=== PATIENT | male | born 1970 | race Caucasian/White ===

== ENCOUNTER 2018-08-25 14:21 | Emergency (ER) | payer SELFPAY ==
[~2018-08-25 14:21] MED LIST: AMOX-208 PO; AZIT250T12 PO; BENZ200C25 PO; CEFD300C3 PO; CLIN300C3 PO; CYCL10TA9 PO; FLT05NA16 NSEACH; HYDR1CAP2 PO; IBUP-2185 PO; LEVO500T2 PO; METH4TAB PO; MINO100C2 PO; MPR22T TP; NAPR-243 PO; NYST15CR3 TP; PRD20T PO; RT-ALBUINH IH; SILV20CR14 TP; [UNRECOGNIZED DRUG - CODE]; [UNRECOGNIZED DRUG - CODE] PO
== END 2018-08-25 17:50 | disposition left against medical advice (07) ==
LOC: EDUNIT# 14:21 → ER 14:22
DX: R05 Cough (principal)

== ENCOUNTER 2019-01-02 17:31 | Emergency (ER) | payer SELFPAY ==
[~2019-01-02] VITALS: Ht 188 cm; Wt 121.6 kg
--- OUTSIDE RECORDS SUMMARY | 2019-01-02 17:37 | XMS REPORT | Continuity of Care Document ---
Author Organization Unknown Address Unknown Allergies Active Description Code Type Severity Reaction Onset Reported/Identified Relationship to Patient Clinical Status Yes sulfamethoxazole [id number] Drug Allergy Moderate HIVES 02/16/2012 Yes trimethoprim [id number] Drug Allergy Moderate HIVES 02/16/2012 Medications There is no data. Problems Date Dx Coded Attending Type Code Diagnosis Diagnosed By 04/30/2010 Ot 959.19 04/30/2010 Ot E000.8 04/30/2010 Ot E013.9 04/30/2010 Ot E849.0 04/30/2010 Ot E927.8 12/23/2010 Ot 729.1 02/17/2012 Ot 110.2 02/17/2012 Ot 110.3 02/17/2012 Ot 110.4 02/17/2012 Ot 682.7 02/17/2012 Ot 729.5 02/17/2012 Ot V12.04 10/28/2012 Ot 729.1 10/28/2012 Ot 780.60 10/28/2012 Ot 784.0 10/28/2012 Ot 784.99 10/28/2012 Ot 786.2 10/28/2012 Ot 787.03 10/28/2012 Ot 787.91 05/22/2014 LONA BERTRAND MD Ot 723.4 BRACHIAL NEURITIS NOS 05/22/2014 LONA BERTRAND MD Ot 729.5 PAIN IN LIMB 06/25/2014 ALISON SNYDER DO Ot 465.9 ACUTE URI NOS 06/25/2014 ALISON SNYDER DO Ot 490 BRONCHITIS NOS 06/25/2014 ALISON SNYDER DO Ot 786.2 COUGH 05/27/2015 Ot 722.0 05/27/2015 BENNETT PEÑALOZA APRN Ot 305.1 TOBACCO USE DISORDER 05/27/2015 BENNETT PEÑALOZA CLINIC MANAGER Ot 490 BRONCHITIS NOS 05/27/2015 BENNETT PEÑALOZA CLINIC MANAGER Ot 786.2 COUGH 05/27/2015 Ot 722.0 12/19/2015 Ot 722.0 12/19/2015 SHAKILA CANO, ZANE Rosario Ot F17.210 NICOTINE DEPENDENCE, CIGARETTES, UNCOMPL 12/19/2015 SHAKILA CANO, ZANE Rosario Ot J40 BRONCHITIS, NOT SPECIFIED ACUTE OR CH 12/19/2015 SHAKILA CANO, ZANE Rosario Ot K42.9 UMBILICAL HERNIA WITHOUT OBSTRUCTION OR 12/19/2015 SHAKILA CANO, ZANE Rosario Ot N39.0 URINARY TRACT INFECTION, SITE NOT SPECIF 12/19/2015 SHAKILA CANO, ZANE Rosario Ot N43.3 HYDROCELE, UNSPECIFIED 12/19/2015 SHAKILA CANO, ZANE Rosario Ot N45.1 EPIDIDYMITIS 12/25/2015 SHAKILA CANO, ZANE Rosario Ot F17.210 12/25/2015 SHAKILA CANO, ZANE Rosario Ot J40 12/25/2015 SHAKILA CANO, ZANE Rosario Ot K42.9 12/25/2015 SHAKILA CANO, ZANE Rosario Ot N39.0 12/25/2015 SHAKILA CANO, AZNE Rosario Ot N43.3 12/25/2015 ZANE JHAVERI MD Ot N45.1 12/26/2015 Ot 722.0 04/11/2016 Ot F17.210 NICOTINE DEPENDENCE, CIGARETTES, UNCOMPL 04/11/2016 Ot 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 Results Test Result Range Gram stain microscopy - 04/11/16 15:55 GRAM STAIN RESULT FEW GRAM POSITIVE COCCI RESEMBLING STAPH NRG Bacteria identification in wound by culture - 04/11/16 15:55 Bacteria identification in wound by culture [id number] NRG FREE TEXT EXTERNAL SENSITIVITY REPORTED AT 1600, 04-12-16 NRG QUANTITY OF GROWTH Moderate Growth NRG CALL POSITIVES (F1 HELP) CT/FRANKIE AT 0928, TO NS/KD NRG PBP2 MRSA isolated (Screening test for MRSA is positive) NRG Bacterial susceptibility panel - 04/11/16 15:55 Oxacillin susceptibility test by minimum inhibitory concentration > = NRG Gentamicin susceptibility test by minimum inhibitory concentration < = NRG Clindamycin susceptibility test by minimum inhibitory concentration R NRG Erythromycin susceptibility test by minimum inhibitory concentration >= NRG Trimethoprim/sulfamethoxazole susceptibility test by minimum inhibitoryconcentration <= NRG Vancomycin susceptibility test by minimum inhibitory concentration < = NRG Levofloxacin susceptibility test by minimum inhibitory concentration <= NRG Rifampin susceptibility test by minimum inhibitory concentration <= NRG Tetracycline susceptibility test by minimum inhibitory concentration <= NRG Encounters ACCT No. Visit Date/Time Discharge Status Pt. Type Provider Facility Loc./Unit Complaint [id number] 08/25/2018 14:22:00 08/25/2018 17:50:00 DIS Emergency MOI KOTHARI MD [facility] ER COUGH [id number] 12/19/2015 15:14:00 12/19/2015 23:59:59 CLS Emergency ZANE JHAVERI MD [facility] ER LEFT TESTICLE SWOLLEN [id number] 05/27/2015 20:27:00 05/27/2015 21:03:00 DIS Emergency BENNETT PEÑALOZA APRN [facility] ER COUGH, CONGESTION [id number] 06/25/2014 18:43:00 06/25/2014 21:07:00 DIS Emergency ALISON SNYDER DO [facility] ER FLU SYMPTOMS [id number] 05/22/2014 13:23:00 05/22/2014 14:30:00 DIS Emergency LONA BERTRAND MD [facility] ER LEFT ARM PAIN/SPASMS [id number] 01/02/2019 17:33:00 ACT Emergency LONA BERTRAND MD [facility] ER SORE ON RIGHT FOOT [id number] 04/11/2016 15:25:00 Document Registration [id number] 05/27/2015 20:28:00 Document Registration [id number] 05/27/2015 20:28:00 Document Registration [id number] 10/28/2012 00:54:00 Document Registration [id number] 01/25/2011 12:34:00 Document Registration [id number] 04/30/2010 04:49:00 Document Registration
--- NOTE | 2019-01-02 17:45 | NUR ---
SEE KATHY CHILD CHARTING FOR WOUND DESCRIPTION.
[2019-01-02] MEDS ORDERED: CLIN300C11 PO (17:50)
--- NOTE | 2019-01-02 17:50 | ED Lower Extremity ---
General Chief Complaint: Lower Extremity Stated Complaint: SORE ON RIGHT FOOT Nursing Triage Note: ARRIVED VIA AMB TO TRIAGE WITH COMPLAINTS OF A MRSA OUTBREAK ON HIS RIGHT FOOT. STATES HE IS OUT OF HIS ABX AND SILVADENE THAT HE USUALLY USES. Nursing Sepsis Screen: No Definite Risk Source: patient Exam Limitations: no limitations History of Present Illness Date Seen by Provider: Jan 02, 2019 Time Seen by Provider: 17:45 Allergies and Home Medications Allergies Coded Allergies: sulfamethoxazole (Verified Allergy, Intermediate, HIVES, 02/16/12) trimethoprim (Verified Allergy, Intermediate, HIVES, 02/16/12) Home Medications Albuterol Sulfate 8.5 Gm Hfa.aer.ad, 2-4 PUFF IH Q4H PRN for SHORTNESS OF BREATH 2-4 puffs every 4 hours as needed for wheezing, shortness of air, or persistent cough Prescribed by: ZANE XIAO on 12/19/15 1742 Clindamycin HCl 300 Mg Capsule, 300 MG PO TID Prescribed by: KATHY BRAND on 01/02/19 1750 Past Ayijfts-Okifuc-Uikyjc Hx Patient Social History Alcohol Use: Occasionally Uses Alcohol Beverage of Choice: Beer Recreational Drug Use: No Smoking Status: Current Everyday Smoker Type Used: Cigarettes Recent Foreign Travel: No Contact w/Someone Who Travel: No Recent Infectious Disease Expo: No Recent Hopitalizations: No Immunizations Up To Date Tetanus Booster (TDap): Unknown Past Medical History Surgeries: Yes (DENTAL EXTRACTIONS) Gallbladder Respiratory: No Cardiac: No Neurological: No Reproductive Disorders: No Sexually Transmitted Disease: No HIV/AIDS: No Gastrointestinal: Yes Abdominal Hernia, Gastroesophageal Reflux Musculoskeletal: No Endocrine: No Cancer: No Psychosocial: No Integumentary: Yes (MRSA HX INVOLING FEET) Blood Disorders: No Family Medical History No Pertinent Family Hx Physical Exam Vital Signs Vital Signs - First Documented 01/02/19 17:35 Temp 98.4 Pulse 79 Resp 16 B/P (MAP) 164/94 (117) Pulse Ox 96 O2 Delivery Room Air Capillary Refill : Less Than 3 Seconds Height, Weight, BMI Height: 6'2.00" Weight: 268lbs. 4.0oz. 121.359052at; 31.66 BMI Method:Stated Progress/Results/Core Measures Results/Orders Micro Results Microbiology 01/02/19 Gram Stain - Final, Resulted 01/02/19 Wound Culture - Preliminary, Resulted Arcanobacterium armidaardiae My Orders Orders - KATHY BRAND Silver Sulfadiazine 400 Gm (Ssd 1% 400 G (01/03/19 09:00) Wound Culture (01/02/19 17:51) Silver Sulfadiazine 50 Gm (Ssd 1% 50 Gm) (01/02/19 17:59) Vital Signs/I&O 01/02/19 01/02/19 17:35 18:09 Temp 98.4 98.4 Pulse 79 79 Resp 16 16 B/P (MAP) 164/94 (117) 164/94 (117) Pulse Ox 96 96 O2 Delivery Room Air Blood Pressure Mean: 117 Departure Impression Primary Impression: 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 Decision time for Depature: 17:46 Referrals: [facility] (PCP/Family) Primary Care Physician Patient Instructions: Wound Care (DC) Add. Discharge Instructions: Take medications as directed. Call tomorrow morning to schedule an appointment with [facility] to have a follow-up appointment within 1 week. If you're unable to get an appointment return back to the emergency room for wound check. Return back to the emergency room for worsening symptoms, worsening infection, or concerns as needed. Change the dressing twice a day. You may use ibuprofen and Tylenol as needed for pain. All discharge instructions reviewed with patient and/or family. Voiced understanding. Scripts Clindamycin HCl (Clindamycin HCl) 300 Mg Capsule 300 MG PO TID for 7 Days, #21 CAP Prov: KATHY BRAND 01/02/19 KATHY BRAND Jan 02, 2019 17:50
[2019-01-02] MEDS ORDERED: SILVER SULFADIAZINE 50 GM CREAM ONE (17:59)
[2019-01-02 18:09] VITALS: BP 164/94
[2019-01-03] MEDS ORDERED: SILVER SULFADIAZINE 400 GM CREAM TOP SCH (09:00)
== END 2019-01-02 18:09 | disposition home or self-care (01) ==
LOC: EDUNIT# 17:31 → ER 17:33
DX: L97.518 Non-pressure chronic ulcer of other part of right foot with other specified severity (principal); K21.9 Gastro-esophageal reflux disease without esophagitis; F17.210 Nicotine dependence, cigarettes, uncomplicated; Z88.2 Allergy status to sulfonamides; Z87.19 Personal history of other diseases of the digestive system; Z86.14 Personal history of Methicillin resistant Staphylococcus aureus infection; Z88.8 Allergy status to other drugs, medicaments and biological substances; Z98.890 Other specified postprocedural states
CPT/HCPCS: 87070; 87077; 87205

== ENCOUNTER 2019-01-20 15:49 | Emergency (ER) | payer SELFPAY ==
[~2019-01-20] VITALS: Ht 188 cm; Wt 119.3 kg
[~2019-01-20 15:49] MED LIST changes: +CLIN300C11 PO
--- NOTE | 2019-01-20 16:18 | ED Integumentary General ---
General Chief Complaint: Skin/Wound Problems Stated Complaint: MRSA ON RIGHT FOOT Nursing Triage Note: Ambulatory to rm 5. Pt reports being diagnosed with MRSA on R foot. Pt reports taking clindamycin and using silvadene cream with no relief. Pt c/o pain and itching. Source: patient Exam Limitations: no limitations History of Present Illness Date Seen by Provider: January 20, 2019 Time Seen by Provider: 16:16 Initial Comments ER with a pruritic and somewhat painful lesion to the plantar surface of the right foot. He was seen here about 3 weeks ago for the same, given a prescription for clindamycin, had a wound culture done, states that he has a history of MRSA. He denies any improvement with the use of clindamycin. He states this is been a problem for about 10 years. He denies fevers chills or swelling of the foot or ankle. Timing/Duration: other (10 years ago) Severity: moderate Associated Symptoms: denies symptoms Allergies and Home Medications Allergies Coded Allergies: sulfamethoxazole (Verified Allergy, Intermediate, HIVES, 02/16/12) trimethoprim (Verified Allergy, Intermediate, HIVES, 02/16/12) Home Medications Albuterol Sulfate 8.5 Gm Hfa.aer.ad, 2-4 PUFF IH Q4H PRN for SHORTNESS OF BREATH 2-4 puffs every 4 hours as needed for wheezing, shortness of air, or persistent cough Prescribed by: ZANE XIAO on 12/19/15 1742 Clindamycin HCl 300 Mg Capsule, 300 MG PO TID Prescribed by: KATHY BRAND on 01/02/19 1750 Patient Home Medication List Home Medication List Reviewed: Yes Review of Systems Review of Systems Constitutional: see HPI EENTM: see HPI Respiratory: no symptoms reported Cardiovascular: no symptoms reported Genitourinary: no symptoms reported Musculoskeletal: no symptoms reported Skin: see HPI Psychiatric/Neurological: No Symptoms Reported Endocrine: No Symptoms Reported Past Dptnonm-Emyffx-Odsiti Hx Patient Social History Alcohol Use: Occasionally Uses Alcohol Beverage of Choice: Beer Recreational Drug Use: No Smoking Status: Current Everyday Smoker Type Used: Cigarettes 2nd Hand Smoke Exposure: Yes Recent Foreign Travel: No Contact w/Someone Who Travel: No Recent Infectious Disease Expo: No Recent Hopitalizations: No Physical Abuse: No Sexual Abuse: No Immunizations Up To Date Tetanus Booster (TDap): Unknown Past Medical History Surgeries: Yes (DENTAL EXTRACTIONS) Gallbladder Respiratory: No Cardiac: No Neurological: No Reproductive Disorders: No Sexually Transmitted Disease: No HIV/AIDS: No Gastrointestinal: Yes Abdominal Hernia, Gastroesophageal Reflux Musculoskeletal: No Endocrine: No Cancer: No Psychosocial: No Integumentary: Yes (MRSA HX INVOLING FEET) Blood Disorders: No Family Medical History No Pertinent Family Hx Physical Exam Vital Signs Vital Signs - First Documented 01/20/19 15:54 Temp 98.3 Pulse 80 Resp 16 B/P (MAP) 164/101 (122) Pulse Ox 97 O2 Delivery Room Air Capillary Refill : Less Than 3 Seconds General Appearance: WD/WN, no apparent distress HEENT: PERRL/EOMI, normal ENT inspection Respiratory: no respiratory distress, no accessory muscle use Neurologic/Psychiatric: alert, normal mood/affect, oriented x 3 Skin: normal color, warm/dry Skin Problem Location: other (to the plantar surface of the right foot, there is a cluster of small vesicles over the heel, scaling and slight erythema of the skin to almost the entire plantar surface of the foot. There is some erythema but no overt cellulitis.) Progress/Results/Core Measures Results/Orders My Orders Orders - BENNETT PEÑALOZA APRN Maria D Prep (01/20/19 16:00) Vital Signs/I&O 01/20/19 15:54 Temp 98.3 Pulse 80 Resp 16 B/P (MAP) 164/101 (122) Pulse Ox 97 O2 Delivery Room Air Blood Pressure Mean: 122 Departure Impression Primary Impression: vesicular tinea pedis Disposition: 01 HOME, SELF-CARE Condition: Stable Departure-Patient Inst. Decision time for Depature: 16:19 Referrals: [facility] (PCP/Family) Primary Care Physician Patient Instructions: Athlete's Foot (DC) Add. Discharge Instructions: 1. Apply the antifungal cream to the bottom of your feet, both feet twice a day for 14 days. It will take 2-3 weeks to notice improvement, longer than that even to notice complete resolution. Wear sandals as much as possible to allow air to circulate around your feet. All discharge instructions reviewed with patient and/or family. Voiced understanding. Scripts Cephalexin (Cephalexin) 500 Mg Tablet 500 MG PO TID, #15 TAB 0 Refills Prov: BENNETT PEÑALOZA APRN 01/20/19 Terbinafine HCl (Terbinafine) 15 Gm Cream..g. 15 GM TP BID, #3 TUBE 1 Refill Apply to the plantar surface both feet twice a day 14 days Prov: BENNETT PEÑALOZA APRN 01/20/19 BENNETT PEÑALOZA APRN January 20, 2019 16:18
[2019-01-20] MEDS ORDERED: TERB15CR6 TP (16:23)
[2019-01-20] MEDS ORDERED: CEPH500T PO (16:24)
--- NOTE | 2019-01-20 16:24 | NUR ---
Lab called. ELENA prep was negative-no yeast or fungus noted. Ion Lyons notified.
[2019-01-20 16:38] VITALS: BP 146/93
== END 2019-01-20 16:30 | disposition home or self-care (01) ==
LOC: EDUNIT# 15:49 → ER 15:51
DX: B35.3 Tinea pedis (principal); K21.9 Gastro-esophageal reflux disease without esophagitis; F17.210 Nicotine dependence, cigarettes, uncomplicated; Z98.890 Other specified postprocedural states; Z88.2 Allergy status to sulfonamides; Z88.8 Allergy status to other drugs, medicaments and biological substances; Z86.14 Personal history of Methicillin resistant Staphylococcus aureus infection
CPT/HCPCS: 87220; 99282

== ENCOUNTER 2019-08-20 13:02 | Emergency (ER) | payer SELFPAY ==
[~2019-08-20] VITALS: Ht 187.9 cm; Wt 120.2 kg
[~2019-08-20 13:02] MED LIST changes: +CEPH500T PO; +TERB15CR6 TP
--- NOTE | 2019-08-20 13:33 | ED Cough/URI ---
General Chief Complaint: Cough/Cold/Flu Symptoms Stated Complaint: COUGH;RUNNY NOSE;CONGESTION Nursing Triage Note: COUGH CONGESTION FOR 1 WEEK OTC MEDS NOT HELPING Sepsis Screen: No Definite Risk Source: patient Exam Limitations: no limitations History of Present Illness Date Seen by Provider: Aug 20, 2019 Time Seen by Provider: 13:20 Initial Comments This is a 49-year-old male that presents to the Emergency Department with complaints of productive cough and nasal drainage 1 week. Patient states that initially the sputum was trang appearing but has progressively become more yellow tinged and clear. Patient denies fever patient reports that he has been utilizing uapq-waz-cgrpuep medications but has not improved. Does have a history of tobaccoism along with bronchitis Timing/Duration: week Severity/Quality: productive cough Prior Episodes/Possible Cause: smoke exposure Modifying Factors: Worse With Activity, Worse With Coughing; Improves With Rest Associated Symptoms: cough, nasal drainage, shortness of breath Allergies and Home Medications Allergies Coded Allergies: sulfamethoxazole (Verified Allergy, Intermediate, HIVES, 02/16/12) trimethoprim (Verified Allergy, Intermediate, HIVES, 02/16/12) Home Medications Albuterol Sulfate 1 Puff Puff, 2 PUFF IH Q4H PRN for SHORTNESS OF BREATH 1 PUFF = 90 MCG Prescribed by: SANTINO BLAIR on 08/20/19 1337 Methylprednisolone 4 Mg Tab.ds.pk, 4 MG PO UD PER DOSE PACK INSTRUCTIONS Prescribed by: SANTINO BLAIR on 08/20/19 1337 Patient Home Medication List Home Medication List Reviewed: Yes Review of Systems Review of Systems Constitutional: no symptoms reported, see HPI EENTM: see HPI, no symptoms reported Respiratory: see HPI, cough, short of breath, wheezing (inspiratory and expiratory) Cardiovascular: no symptoms reported, see HPI Gastrointestinal: no symptoms reported, see HPI Genitourinary: no symptoms reported, see HPI Musculoskeletal: no symptoms reported, see HPI Skin: no symptoms reported, see HPI Psychiatric/Neurological: No Symptoms Reported, See HPI Hematologic/Lymphatic: No Symptoms Reported, See HPI Immunological/Allergic: no symptoms reported, see HPI All Other Systems Reviewed Negative Unless Noted: Yes Past Ylotmjf-Tnkwjz-Getdbn Hx Past Med/Social Hx: Reviewed Nursing Past Med/Soc Hx Patient Social History Alcohol Use: Occasionally Uses Number of Drinks Today: AA Alcohol Beverage of Choice: Beer Recreational Drug Use: Yes (SMOKES 1 PPD) Smoking Status: Current Everyday Smoker Type Used: Cigarettes 2nd Hand Smoke Exposure: Yes Recent Foreign Travel: No Contact w/Someone Who Travel: No Recent Infectious Disease Expo: No Recent Hopitalizations: No Immunizations Up To Date Tetanus Booster (TDap): Unknown Past Medical History Surgeries: Yes (DENTAL EXTRACTIONS) Gallbladder Respiratory: No Cardiac: No Neurological: No Reproductive Disorders: No Sexually Transmitted Disease: No HIV/AIDS: No Gastrointestinal: Yes Abdominal Hernia, Gastroesophageal Reflux Musculoskeletal: No Endocrine: No Cancer: No Psychosocial: No Integumentary: Yes (MRSA HX INVOLING FEET) Blood Disorders: No Family Medical History No Pertinent Family Hx Physical Exam Vital Signs - First Documented 08/20/19 08/20/19 13:15 13:45 Temp 36.6 Pulse 76 Resp 18 B/P (MAP) 152/87 (108) Pulse Ox 98 Capillary Refill : Less Than 3 Seconds Height: 6'2.00" Weight: 263lbs. 4.0oz. 119.984408nb; 34.00 BMI Method:Stated General Appearance: WD/WN, no apparent distress HEENT: PERRL/EOMI, normal ENT inspection, TMs normal, pharynx normal Neck: non-tender, full range of motion, supple, normal inspection Respiratory: chest non-tender, normal breath sounds, no respiratory distress, no accessory muscle use, wheezing, expiration, inspiration Cardiovascular: normal peripheral pulses, regular rate, rhythm, no edema, no gallop, no JVD, no murmur Gastrointestinal: normal bowel sounds, non tender, soft, no organomegaly Extremities: normal range of motion, non-tender, normal inspection, no pedal edema, no calf tenderness Neurologic/Psychiatric: almond cutting machine tender II-XII nml as tested, no motor/sensory deficits, alert, normal mood/affect, oriented x 3 Skin: normal color, warm/dry Lymphatic: no adenopathy Progress/Results/Core Measures Suspected Sepsis Recent Fever Within 48 Hours: No Infection Criteria Present: None New/Unexplained Altered Menta: No Sepsis Screen: No Definite Risk SIRS Temperature: Pulse: 76 Respiratory Rate: 18 Blood Pressure 152 /87 Mean: 108 Results/Orders Vital Signs/I&O 08/20/19 08/20/19 13:15 13:45 Temp 36.6 36.6 Pulse 76 76 Resp 18 18 B/P (MAP) 152/87 (108) 152/87 (108) Pulse Ox 98 Capillary Refill : Less Than 3 Seconds Blood Pressure Mean: 108 POS Departure Impression Primary Impression: Bronchitis Disposition: 01 HOME, SELF-CARE Condition: Stable Departure-Patient Inst. Decision time for Depature: 13:34 Referrals: [facility] (PCP) Primary Care Physician NATALEE HATCH DO (Family) Primary Care Physician Patient Instructions: Acute Bronchitis, Adult (DC), How to Use Your Metered Dos e Inhaler (Adults) Add. Discharge Instructions: Continue to use the fxbd-qvp-gqccmii regimen that you have been using. Continue to drink adequate amounts of clear liquids You may use the inhaler 1-2 puffs every 4 hours as needed. Take the steroids as prescribed Visit with her primary care doctor about alternatives to smoking. All discharge instructions reviewed with patient and/or family. Voiced understanding. Scripts Methylprednisolone (Medrol) 4 Mg Tab.ds.pk 4 MG PO UD for 6 Days, #21 PKG 0 Refills PER DOSE PACK INSTRUCTIONS Prov: SANTINO BLAIR 08/20/19 Albuterol Sulfate (PROAIR HFA) 1 Puff Puff 2 PUFF IH Q4H PRN for SHORTNESS OF BREATH, #1 INHALER 1 PUFF = 90 MCG Prov: SANTINO BLAIR 08/20/19 SANTINO BLAIR Aug 20, 2019 13:33 POS
[2019-08-20] MEDS ORDERED: RT-ALBUINH IH (13:37)
[2019-08-20] MEDS ORDERED: METH4TAB PO (13:37)
[2019-08-20 13:45] VITALS: BP 152/87
--- OUTSIDE RECORDS SUMMARY | 2019-09-14 10:12 | XMS REPORT ---
Author Author Troy Mclaughlin Doctor Organization [facility] Address Unknown Phone Unavailable Care Team Providers Care Admission Liaison Name Role Phone Migration, Doctor Unavailable Unavailable PROBLEMS Unknown Problems ALLERGIES Substance Reaction Event Type Date Status Bactrim Unknown Drug Allergy Dec, Active ENCOUNTERS Encounter Location Date Diagnosis [facility] [address] [facility] [id number] [address] [place] [phone] Nov, Body aches R52 and Acute bro nchitis J20.9 [facility] [address] [facility] [id number] [address] [place] [phone] Dec, [facility] [address] [facility] [id number] [address] [place] [phone] Dec, [facility] [address] [facility] [id number] [address] [place] [phone] Feb, [facility] [address] [facility] [id number] [address] [place] [phone] Feb, [facility] [address] [facility] [id number] [address] [place] [phone] January, IMMUNIZATIONS No Known Immunizations SOCIAL HISTORY Never Assessed [place] [place] VITAL SIGNS MEDICATIONS Medication Instructions Dosage Frequency Start Date End Date Duration S tatus Silvadene 1 % apply 1 dose a 1/16 inch (1.5 mm) thick layer to entire burn area by Topical route 1 time per day Feb, Active Keflex 500 mg 1 Capsule 3 times per day Feb, Active Clindamycin HCl 150 mg 1 capsule by Oral route every 6 hours for 10 days Feb, Active RESULTS No Results PROCEDURES No Known procedures INSTRUCTIONS MEDICATIONS ADMINISTERED No Known Medications MEDICAL (GENERAL) HISTORY Type Description Date Surgical History cholecystectomy Hospitalization History surgery only
--- OUTSIDE RECORDS SUMMARY | 2019-09-14 10:12 | XMS REPORT | Continuity of Care Document ---
Author Organization Unknown Address Unknown Phone Unavailable Allergies Active Description Code Type Severity Reaction Onset Reported/Identified Relationship to Patient Clinical Status Yes sulfamethoxazole [id number] Drug Allergy Moderate HIVES 02/16/2012 Yes trimethoprim [id number] Drug Allergy Moderate HIVES 02/16/2012 Medications There [...] Ot 722.0 05/27/2015 BENNETT PEÑALOZA APRN Ot 305 .1 TOBACCO USE DISORDER 05/27/2015 BENNETT PEÑALOZA [employer] SALES ENGINEER Ot 490 BRONCHITIS NOS 05/27/2015 BENNETT PEÑALOZA APRN Ot 786 .2 COUGH 05/27/2015 Ot 722.0 12/19/2015 Ot 722.0 [...] ZANE Rosario Ot N39.0 12/25/2015 SHAKILA CANO, ZANE Rosario Ot N43.3 12/25/2015 SHAKILA CANO, ZANE Rosario Ot N45.1 12/26/2015 Ot 722.0 04/11/2016 Ot F17.210 NI COTINE DEPENDENCE, CIGARETTES, UNCOMPL 04/11/2016 Ot L01.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 04/11/2016 Ot R21 RASH A ND OTHER NONSPECIFIC SKIN ERUPTION 04/13/2016 Ot F17.210 NI COTINE DEPENDENCE, CIGARETTES, UNCOMPL 04/13/2016 Ot L01.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 04/13/2016 Ot R21 RASH A ND OTHER NONSPECIFIC SKIN ERUPTION 08/25/2018 TAYE CANO, MOI Whitmore Ot R05 COUGH 01/02/2019 KATHY BRAND Ot F17.210 NICOTINE DEPENDENCE, CIGARETTES, UNCOMPL 01/02/2019 KATHY BRAND Ot K21.9 GASTRO-ESOPHAGEAL REFLUX DISEASE WITHOUT 01/02/2019 KATHY BRAND Ot L97.518 NON-PRS CHRONIC ULCER OTH PRT RIGHT FOOT 01/02/2019 KATHY BRAND Ot Z86.14 PERSONAL HISTORY OF METHICILLIN RESIS ST 01/02/2019 LORNE BRANDIS Ot Z87.19 PERSONAL HISTORY OF OTHER DISEASES OF TH 01/02/2019 KATHY BRAND Ot Z88.2 ALLERGY STATUS TO SULFONAMIDES STATUS 01/02/2019 LORNE BRANDIS Ot Z88.8 ALLERGY STATUS TO OTH DRUG/MEDS/BIOL SUB 01/02/2019 LORNE BRANDIS Ot Z98.890 OTHER SPECIFIED POSTPROCEDURAL STATES 01/04/2019 KTAHY BRAND Ot F17.210 NICOTINE DEPENDENCE, CIGARETTES, UNCOMPL 01/04/2019 LORNE BRANDIS Ot K21.9 GASTRO-ESOPHAGEAL REFLUX DISEASE WITHOUT 01/04/2019 KATHY BRAND Ot L97.518 NON-PRS CHRONIC ULCER OTH PRT RIGHT FOOT 01/04/2019 KATHY BRAND Ot Z86.14 PERSONAL HISTORY OF METHICILLIN RESIS ST 01/04/2019 KATHY BRAND Ot Z87.19 PERSONAL HISTORY OF OTHER DISEASES OF TH 01/04/2019 KATHY BRAND Ot Z88.2 ALLERGY STATUS TO SULFONAMIDES STATUS 01/04/2019 KATHY BRAND Ot Z88.8 ALLERGY STATUS TO OTH DRUG/MEDS/BIOL SUB 01/04/2019 KATHY BRAND Ot Z98.890 OTHER SPECIFIED POSTPROCEDURAL STATES 01/20/2019 BENNETT PEÑALOZA APRN Ot B35 .3 TINEA PEDIS 01/20/2019 BENNETT PEÑALOZA APRN Ot F17.210 NICOTINE DEPENDENCE, CIGARETTES, UNCOMPL 01/20/2019 BENNETT PEÑALOZA [employer] SALES ENGINEER Ot K21 .9 GASTRO-ESOPHAGEAL REFLUX DISEASE WITHOUT 01/20/2019 BENNETT PEÑALOZA [employer] SALES ENGINEER Ot M79.671 PAIN IN RIGHT FOOT 01/20/2019 BENNETT PEÑALOZA [employer] SALES ENGINEER Ot Z86.14 PERSONAL HISTORY OF METHICILLIN RESIS ST 01/20/2019 BENNETT PEÑALOZA [employer] SALES ENGINEER Ot Z88 .2 ALLERGY STATUS TO SULFONAMIDES STATUS 01/20/2019 BENNETT PEÑALOZA [employer] SALES ENGINEER Ot Z88 .8 ALLERGY STATUS TO OTH DRUG/MEDS/BIOL SUB 01/20/2019 BENNETT PEÑALOZA APRN Ot Z98.890 OTHER SPECIFIED POSTPROCEDURAL STATES 08/20/2019 SANTINO BLAIR Ot F17.210 NICOTINE DEPENDENCE, CIGARETTES, UNCOMPL 08/20/2019 ROSSY, SANTINO RUBBER LINER Ot J40 BRONCHITIS, NOT SPECIFIED ACUTE OR CH 08/20/2019 ROSSY, SANTINO RUBBER LINER Ot K21.9 GASTRO-ESOPHAGEAL REFLUX DISEASE WITHOUT 08/20/2019 ROSSY, SANTINO RUBBER LINER Ot R05 COUGH 08/20/2019 ROSSY, SANTINO RUBBER LINER Ot Z88.1 ALLERGY STATUS TO OTHER ANTIBIOTIC AGENT 08/20/2019 ROSSY, SANTINO RUBBER LINER Ot Z88.2 ALLERGY STATUS TO SULFONAMIDES STATUS 08/25/2019 ROSSY, SANTINO RUBBER LINER Ot F17.210 NICOTINE DEPENDENCE, CIGARETTES, UNCOMPL 08/25/2019 ROSSY, SANTINO RUBBER LINER Ot J40 BRONCHITIS, NOT SPECIFIED ACUTE OR CH 08/25/2019 ROSSY, SANTINO RUBBER LINER Ot K21.9 GASTRO-ESOPHAGEAL REFLUX DISEASE WITHOUT 08/25/2019 ROSSY, SANTINO RUBBER LINER Ot R05 COUGH 08/25/2019 ROSSY, SANTINO RUBBER LINER Ot Z88.1 ALLERGY STATUS TO OTHER ANTIBIOTIC AGENT 08/25/2019 ROSSY, SANTINO RUBBER LINER Ot Z88.2 ALLERGY STATUS TO SULFONAMIDES STATUS 08/26/2019 ROSSY, SANTINO RUBBER LINER Ot F17.210 NICOTINE DEPENDENCE, CIGARETTES, UNCOMPL 08/26/2019 ROSSY, SANTINO RUBBER LINER Ot J40 BRONCHITIS, NOT SPECIFIED ACUTE OR CH 08/26/2019 ROSSY, SANTINO RUBBER LINER Ot K21.9 GASTRO-ESOPHAGEAL REFLUX DISEASE WITHOUT 08/26/2019 ROSSY, SANTINO RUBBER LINER Ot R05 COUGH 08/26/2019 ROSSY, SANTINO RUBBER LINER Ot Z88.1 ALLERGY STATUS TO OTHER ANTIBIOTIC AGENT 08/26/2019 ROSSY, SANTINO RUBBER LINER Ot Z88.2 ALLERGY STATUS TO SULFONAMIDES STATUS 09/06/2019 BENNETT PEÑALOZA [employer] SALES ENGINEER Ot B35 .3 TINEA PEDIS 09/06/2019 BENNETT PEÑALOZA [employer] SALES ENGINEER Ot F17.210 NICOTINE DEPENDENCE, CIGARETTES, UNCOMPL 09/06/2019 BENNETT PEÑALOZA [employer] SALES ENGINEER Ot K21 .9 GASTRO-ESOPHAGEAL REFLUX DISEASE WITHOUT 09/06/2019 BENNETT PEÑALOZA [employer] SALES ENGINEER Ot L03.116 CELLULITIS OF LEFT LOWER LIMB 09/06/2019 BENNETT PEÑALOZA [employer] SALES ENGINEER Ot Z88 .1 ALLERGY STATUS TO OTHER ANTIBIOTIC AGENT 09/06/2019 BENNETT PEÑALOZA [employer] SALES ENGINEER Ot Z88 .2 ALLERGY STATUS TO SULFONAMIDES STATUS 09/09/2019 BENNETT PEÑALOZA [employer] SALES ENGINEER Ot B35 .3 TINEA PEDIS 09/09/2019 BENNETT PEÑALOZA [employer] SALES ENGINEER Ot F17.210 NICOTINE DEPENDENCE, CIGARETTES, UNCOMPL 09/09/2019 BENNETT PEÑALOZA [employer] SALES ENGINEER Ot K21 .9 GASTRO-ESOPHAGEAL REFLUX DISEASE WITHOUT 09/09/2019 BENNETT PEÑALOZA [employer] SALES ENGINEER Ot L03.116 CELLULITIS OF LEFT LOWER LIMB 09/09/2019 BENNETT PEÑALOZA [employer] SALES ENGINEER Ot Z88 .1 ALLERGY STATUS TO OTHER ANTIBIOTIC AGENT 09/09/2019 BENNETT PEÑALOZA [employer] SALES ENGINEER Ot Z88 .2 ALLERGY STATUS TO SULFONAMIDES STATUS Procedures There is no data. Results Test Result Range Gram stain microscopy - 04/11/16 15:55 GRAM STAIN RESULT FEW GRAM POSITIVE COCCI RESEMBLI NG STAPH NRG Bacteria identification in wound by cult ure - 04/11/16 15:55 Bacteria identification in wound by culture [id number] NRG FREE TEXT EXTERNAL SENSITIVITY REPORTED AT 1600, NRG QUANTITY OF GROWTH Moderate Growth NRG CALL POSITIVES (F1 HELP) CT/FRANKIE AT 0928, TO NS/KD NRG PBP2 MRSA isolated (Screening test for MRSA is positive) NR Bacterial susceptibility panel - 6 15:55 Oxacillin susceptibility test by minimum inhibitory co ncentration >= NRG Gentamicin susceptibility test by minimum inhibitory c oncentration <= NRG Clindamycin susceptibility test by minimum inhibitory concentration R NRG Erythromycin susceptibility test by minimum inhibitory concentration >= NRG Trimethoprim/sulfamethoxazole susceptibi lity test by minimum inhibitoryconcentration <= NRG Vancomycin susceptibility test by minimum inhibitory c oncentration <= NRG Levofloxacin susceptibility test by minimum inhibitory concentration <= NRG Rifampin susceptibility test by minimum inhibitory con centration <= NRG Tetracycline susceptibility test by minimum inhibitory concentration <= NRG Gram stain microscopy - 01/02/19 17:35 Gram stain microscopy Mixed bacterial jenna NRG Bacteria identification in wound by cult ure - 01/02/19 17:35 Bacteria identification in wound by culture [id number] NRG FREE TEXT EXTERNAL WITH NRG QUANTITY OF GROWTH Many NRG Microscopic examination by ELENA preparati on - 01/20/19 16:07 ELENA RESULT NEGATIVE; NO FUNGAL ELEMENTS OBSERVED NRG Gram stain microscopy - 09/03/19 16:54 Gram stain microscopy Many Gram Negative Bacilli NRG Bacteria identification in wound by cult ure - 09/03/19 16:54 Bacteria identification in wound by culture [id number] NRG FREE TEXT EXTERNAL ID REPORTED 09/06/19 15:05 NRG QUANTITY OF GROWTH Many NRG FREE TEXT ENTRY 2 SUSCEPTIBILITY REPORTED 09/07/19 09:05 NRG Dirithromycin susceptibility test by dis k diffusion - 09/03/19 16:54 Gentamicin susceptibility test by minimum inhibitory c oncentration <= NRG Trimethoprim/sulfamethoxazole susceptibi lity test by minimum inhibitoryconcentration > NRG Levofloxacin susceptibility test by minimum inhibitory concentration <= NRG Ampicillin susceptibility test by minimum inhibitory c oncentration <= NRG Cefazolin susceptibility test by minimum inhibitory co ncentration 4 NRG Ceftriaxone susceptibility test by minimum inhibitory concentration <= NRG Piperacillin/tazobactam susceptibility t est by minimum inhibitory concentration <= NRG Ciprofloxacin susceptibility test by minimum inhibitor y concentration <= NRG Amoxicillin and clavulanate potassium susc LASHONDA <= NRG Dirithromycin susceptibility test by dis k diffusion - 09/03/19 16:54 Oxacillin susceptibility test by minimum inhibitory co ncentration <= NRG Clindamycin susceptibility test by minimum inhibitory concentration <= NRG Erythromycin susceptibility test by minimum inhibitory concentration <= NRG Vancomycin susceptibility test by minimum inhibitory c oncentration <= NRG Levofloxacin susceptibility test by minimum inhibitory concentration <= NRG Rifampin susceptibility test by minimum inhibitory con centration <= NRG Cefazolin susceptibility test by minimum inhibitory co ncentration <= NRG Linezolid susceptibility test by minimum inhibitory co ncentration 2 NRG Moxifloxacin susceptibility test by minimum inhibitory concentration S NRG Minocycline susc LASHONDA <= NRG Encounters ACCT No. Visit Date/Time Discharge Status Pt. Type Provider Facility Loc./Unit Complaint [id number] 09/03/2019 15:32:00 17:55:00 DIS Outpatient BENNETT PEÑALOZA APRN [facility] ER ABSCESS L FOOT [id number] 08/20/2019 13:03:00 13:52:00 DIS Emergency SANTINO BLAIR [facility] ER COUGH;RUNNY NOSE;CONGES TION [id number] 01/20/2019 15:51:00 05/04/2 019 16:30:00 DIS Emergency BENNETT PEÑALOZA APRN [facility] ER MRSA ON RIGHT FOOT [id number] 01/02/2019 17:33:00 019 18:09:00 DIS Emergency KATHY BRAND [facility] ER SORE ON RIGHT FOOT [id number] 08/25/2018 14:22:00 018 17:50:00 DIS Emergency TAYE CANO, MOI Whitmore [facility] ER COUGH [id number] 12/19/2015 15:14:00 016 23:59:59 CLS Emergency SHAKILA CANO, ZANE Rosario [facility] ER LEFT TESTICLE S WOLLEN [id number] 05/27/2015 20:27:00 015 21:03:00 DIS Emergency BENNETT PEÑALOZA APRN [facility] ER COUGH, CONGESTION [id number] 06/25/2014 18:43:00 014 21:07:00 DIS Emergency ALISON SNYDER DO [facility] ER FLU SYMPTOMS [id number] 05/22/2014 13:23:00 014 14:30:00 DIS Emergency ELZA CANO, LONA Aldana [facility] ER LEFT ARM PAIN/SPASMS [id number] 04/11/2016 15:25:00 Document Registration [id number] 05/27/2015 20:28:00 Document Registration [id number] 05/27/2015 20:28:00 Document Registration [id number] 10/28/2012 00:54:00 Document Registration [id number] 01/25/2011 12:34:00 Document Registration [id number] 04/30/2010 04:49:00 Document Registration
== END 2019-08-20 13:52 | disposition home or self-care (01) ==
LOC: EDUNIT# 13:02 → ER 13:03
DX: J40 Bronchitis, not specified as acute or chronic (principal); K21.9 Gastro-esophageal reflux disease without esophagitis; F17.210 Nicotine dependence, cigarettes, uncomplicated; Z88.1 Allergy status to other antibiotic agents; Z88.2 Allergy status to sulfonamides
CPT/HCPCS: 99282

== ENCOUNTER 2019-09-03 15:31 | Emergency (ER) | payer SELFPAY ==
[~2019-09-03] VITALS: Ht 187 cm; Wt 119.0 kg
[2019-09-03] MEDS ORDERED: SILV25CR21 (15:43)
--- NOTE | 2019-09-03 16:54 | ED Integumentary General ---
General Chief Complaint: Skin/Wound Problems Stated Complaint: ABSCESS L FOOT Nursing Triage Note: ABSCESS LEFT FOOT X3-5 DAYS. STATES HE HAS A HX OF MRSA. Source: patient Exam Limitations: no limitations History of Present Illness Date Seen by Provider: Sep 03, 2019 Time Seen by Provider: 16:52 Initial Comments To ER with abscess left foot for 3-5 days plantar surface. Timing/Duration: constant, getting worse Severity: moderate Associated Symptoms: denies symptoms Allergies and Home Medications Allergies Coded Allergies: sulfamethoxazole (Verified Allergy, Intermediate, HIVES, 02/16/12) trimethoprim (Verified Allergy, Intermediate, HIVES, 02/16/12) Home Medications Sodium Hypochlorite 1,000 Ml Liquid, 1,000 ML TOP DAILY Prescribed by: BENNETT PEÑALOZA on 09/03/19 1716 Patient Home Medication List Home Medication List Reviewed: Yes Review of Systems Review of Systems Constitutional: see HPI EENTM: see HPI Respiratory: no symptoms reported Cardiovascular: no symptoms reported Genitourinary: no symptoms reported Musculoskeletal: no symptoms reported Skin: see HPI Psychiatric/Neurological: No Symptoms Reported Endocrine: No Symptoms Reported Past Keyxgnp-Cujqra-Tqzdrt Hx Patient Social History Alcohol Use: Rarely Uses Alcohol Beverage of Choice: Beer Recreational Drug Use: No Smoking Status: Current Everyday Smoker Type Used: Cigarettes 2nd Hand Smoke Exposure: Yes Recent Foreign Travel: No Contact w/Someone Who Travel: No Recent Infectious Disease Expo: No Recent Hopitalizations: No Immunizations Up To Date Tetanus Booster (TDap): Unknown Past Medical History Surgeries: Yes (DENTAL EXTRACTIONS) Gallbladder Respiratory: No Cardiac: No Neurological: No Reproductive Disorders: No Sexually Transmitted Disease: No HIV/AIDS: No Genitourinary: No Gastrointestinal: Yes Abdominal Hernia, Gastroesophageal Reflux Musculoskeletal: No Endocrine: No HEENT: No Cancer: No Psychosocial: No Integumentary: Yes (MRSA HX INVOLING FEET) Blood Disorders: No Family Medical History No Pertinent Family Hx Physical Exam Vital Signs Vital Signs - First Documented 09/03/19 15:39 Temp 36.8 Pulse 83 Resp 16 B/P (MAP) 159/98 (118) Pulse Ox 97 O2 Delivery Room Air Capillary Refill : Less Than 3 Seconds General Appearance: WD/WN, no apparent distress HEENT: PERRL/EOMI, normal ENT inspection Cardiovascular: regular rate, rhythm Respiratory: no respiratory distress, no accessory muscle use Extremities: normal range of motion, non-tender Neurologic/Psychiatric: alert, normal mood/affect, oriented x 3 Skin: normal color, warm/dry Skin Problem Character: other (V did tissue/roof of the blister/bulla was debrided, this was smeared with Lotrisone cream and mupirocin ointment, given injection of Rocephin. I'll send him home on topical antifungal, doxycycline, Dakin solution ) Progress/Results/Core Measures Results/Orders My Orders Orders - BENNETT PEÑALOZA APRN Wound Culture (09/03/19 16:50) Doxycycline Hyclate Tablet (Vibramycin T (09/03/19 17:00) Ceftriaxone For Im Use (Rocephin For Im (09/03/19 17:00) Mupirocin Ointment (Bactroban Ointment (09/03/19 21:00) Clotrimazole 1% Cream (Lotrimin 1% Cream (09/03/19 21:00) Lidocaine 1% Inj 20 Ml (Xylocaine 1% Inj (09/03/19 17:00) Vital Signs/I&O 09/03/19 15:39 Temp 36.8 Pulse 83 Resp 16 B/P (MAP) 159/98 (118) Pulse Ox 97 O2 Delivery Room Air Blood Pressure Mean: 118 POS Departure Impression Primary Impression: Tinea pedis Qualified Codes: B35.3 - Tinea pedis Additional Impression: Cellulitis Qualified Codes: L03.90 - Cellulitis, unspecified Disposition: 01 HOME, SELF-CARE Condition: Stable Departure-Patient Inst. Decision time for Depature: 17:13 Referrals: NATALEE HATCH DO (PCP/Family) Primary Care Physician Patient Instructions: Skin Abscess Add. Discharge Instructions: 1. Soak some gauze in the Dakin's solution, applied directly against the wound on your foot then wrap it daily and remove it in the evening time. Once you remove this then apply the antifungal ointment. Take the oral antibiotics as directed. Scripts Clotrimazole (Clotrimazole) 15 Gm Cream..g. 1 GM TP BID, #1 TUBE Prov: BENNETT PEÑALOZA APRN 09/03/19 Doxycycline Hyclate (Doxycycline Hyclate) 100 Mg Capsule 100 MG PO BID, #14 CAP Prov: BENNETT PEÑALOZA APRN 09/03/19 Sodium Hypochlorite (Dakin's) 1,000 Ml Liquid 1000 ML TOP DAILY, #1000 ML Prov: BENNETT PEÑALOZA APRN 09/03/19 BENNETT PEÑALOZA APRN Sep 03, 2019 16:54 POS
[2019-09-03] MEDS ORDERED: cefTRIAXone 1,000 MG/2.86 ml vial (IM ONLY) IM SCH (17:00)
[2019-09-03] MEDS ORDERED: LIDOCAINE 1% INJ 20 ML 20 ML VIAL INJ ONE (17:00)
[2019-09-03] MEDS ORDERED: DOXYCYCLINE 100 MG (VIBRAMYCIN) TABLET PO SCH (17:00)
[2019-09-03] MEDS ORDERED: [UNRECOGNIZED DRUG - CODE] TOP (17:16)
[2019-09-03] MEDS ORDERED: DOXY100C2 PO (17:25)
[2019-09-03] MEDS ORDERED: CLOT15CR5 TP (17:25)
[2019-09-03 17:55] VITALS: BP 159/98
[2019-09-03] MEDS ORDERED: MUPIROCIN 2% OINT 22 GM (BACTROBAN) TUBE TOP SCH (21:00)
[2019-09-03] MEDS ORDERED: CLOTRIMAZOLE 1% CREAM (LOTRIMIN) 30 GM TOP SCH (21:00)
== END 2019-09-03 17:55 | disposition home or self-care (01) ==
LOC: EDUNIT# 15:31 → ER 15:32
DX: B35.3 Tinea pedis (principal); L03.116 Cellulitis of left lower limb; K21.9 Gastro-esophageal reflux disease without esophagitis; F17.210 Nicotine dependence, cigarettes, uncomplicated; Z88.2 Allergy status to sulfonamides; Z88.1 Allergy status to other antibiotic agents
CPT/HCPCS: 87070; 87077; 87186; 87205

== ENCOUNTER 2020-09-01 16:15 | Emergency (ER) | payer SELFPAY ==
[~2020-09-01] VITALS: Ht 188 cm; Wt 121.6 kg
[~2020-09-01 16:15] MED LIST changes: -CLIN300C11 PO; +CLIN300C12 PO; +CLOT15CR28 TP; +DOXY100C2 PO; -MINO100C2 PO; +MINO100C5 PO; +SILV25CR21; +[UNRECOGNIZED DRUG - CODE] TOP
[2020-09-01 16:18] VITALS: BP 162/93
--- NOTE | 2020-09-01 16:38 | ED Upper Extremity ---
General Chief Complaint: Upper Extremity Stated Complaint: R ARM/SHOULDER PAIN Source: patient Exam Limitations: no limitations History of Present Illness Date Seen by Provider: Sep 01, 2020 Time Seen by Provider: 16:20 Initial Comments Patient presents ER by private conveyance with chief complaint of for the past couple weeks has had progressively worsening swelling and pain in his right hand elbow and shoulder. 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 He is right-handed. He is not having any loss of sensation. He says elevating his hand has helped. He has been using ibuprofen. No traumatic injury. Allergies and Home Medications Allergies Coded Allergies: sulfamethoxazole (Verified Allergy, Intermediate, HIVES, 02/16/12) trimethoprim (Verified Allergy, Intermediate, HIVES, 02/16/12) Home Medications Clotrimazole 15 Gm Cream..g., 1 GM TP BID Prescribed by: BENNETT PEÑALOZA on 09/03/19 1725 Doxycycline Hyclate 100 Mg Capsule, 100 MG PO BID Prescribed by: BENNETT PEÑALOZA on 09/03/19 1725 Sodium Hypochlorite 1,000 Ml Liquid, 1,000 ML TOP DAILY Prescribed by: BENNETT PEÑALOZA on 09/03/19 1716 Patient Home Medication List Home Medication List Reviewed: Yes Review of Systems Constitutional: No chills, No diaphoresis EENTM: No ear discharge, No ear pain Respiratory: No cough, No short of breath Cardiovascular: No chest pain, No palpitations Gastrointestinal: No abdominal pain, No nausea, No vomiting Genitourinary: No discharge, No dysuria Musculoskeletal: see HPI; No back pain; joint pain All Other Systems Reviewed Negative Unless Noted: Yes Past Obrrkns-Lvnbtx-Jojiiw Hx Patient Social History Alcohol Use: Occasionally Uses Alcohol Beverage of Choice: Beer Recreational Drug Use: No Smoking Status: Current Everyday Smoker Type Used: Cigarettes 2nd Hand Smoke Exposure: Yes Recent Foreign Travel: No Contact w/Someone Who Travel: No Recent Hopitalizations: No Immunizations Up To Date Tetanus Booster (TDap): Unknown Past Medical History Surgeries: Yes (DENTAL EXTRACTIONS) Gallbladder Respiratory: No Cardiac: No Neurological: No Reproductive Disorders: No Sexually Transmitted Disease: No HIV/AIDS: No Genitourinary: No Gastrointestinal: Yes Abdominal Hernia, Gastroesophageal Reflux Musculoskeletal: No Endocrine: No HEENT: No Cancer: No Psychosocial: No Integumentary: Yes (MRSA HX INVOLING FEET) Blood Disorders: No Family Medical History No Pertinent Family Hx Physical Exam Vital Signs Capillary Refill : Height, Weight, BMI Height: 6'2.00" Weight: 263lbs. 4.0oz. 119.821833no; 34.00 BMI Method:Stated General Appearance: WD/WN, no apparent distress HEENT: normal ENT inspection, pharynx normal Neck: non-tender, full range of motion, supple Cardiovascular: normal peripheral pulses, regular rate, rhythm Respiratory: no respiratory distress, no accessory muscle use Back: normal inspection, no vertebral tenderness Shoulder: normal inspection, no evidence of injury, normal ROM, soft tissue tenderness (Mild soft tissue tenderness over the trapezius that does not re create peripheral symptoms.) Elbow/Forearm: Right, soft tissue tenderness (Mild reproduction of symptoms in the wrist with Tinel's tap over ulnar groove. 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 We are going to give him a trial steroids, NSAIDs, immobilization. Work restrictions and rice therapy. We have encouraged him to follow-up in [address] HATCH if his symptoms are not improving. Departure Impression Primary Impression: Carpal tunnel syndrome Qualified Codes: G56.01 - Carpal tunnel syndrome, right upper limb Additional Impressions: Cubital tunnel syndrome on right Cervical radiculopathy Cervical radiculopathy, acute Disposition: HOME, SELF-CARE Condition: Stable Departure-Patient Inst. Decision time for Depature: 16:39 Referrals: NATALEE HATCH DO (PCP/Family) Primary Care Physician Patient Instructions: Radiculopathy, Carpal Tunnel Syndrome (DC), Cubital Tunnel Syndrome Add. Discharge Instructions: Review the handouts for more information on your syndrome. Rest your arm when not in use. Ice the areas that are swelling for 20 minutes every 2 hours for the first 2 days. You can wrap an Kai bandage around your elbow for compression and wear the cock- up splint as instructed. Elevate your arm above the level of your heart when possible to help reduce swelling and pain. Wear the cock-up splint for the next 2 weeks. For the next week you are not to lift more than 10 pounds or do any repetitive twisting of the right forearm. Plan to follow-up with Dr. Hatch in 2 weeks. 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 Take ibuprofen 4 tablets 3 times a day for the next 2 weeks. If you start to have indigestion or chest pain then stop taking the ibuprofen and see your doctor. Tylenol 1000 mg every 8 hours as necessary for breakthrough pain. All discharge instructions reviewed with patient and/or family. Voiced understanding. Scripts Methylprednisolone (Methylprednisolone Dose Pack) 4 Mg Tab.ds.pk 4 MG PO UD for 6 Days, #21 PKG 0 Refills PER DOSE PACK INSTRUCTIONS Prov: MOI KOTHARI 09/01/20 Work/School Note: Work Release Form Date Seen in the Emergency Department: Sep 01, 2020 Return to Work: Sep 02, 2020 Restrictions: Need Release from Doctor Other Restrictions Listed Below: No repetitive twisting motion of the right forearm until 09/08/2020. Restrictions: No lifting more than 10 pounds with the right forearm until 09/08/2020. Copy Copies To 1: NATALEE HATCH TITUS J Sep 01, 2020 16:38
[2020-09-01] MEDS ORDERED: METH4TAB10 PO (16:47)
== END 2020-09-01 16:50 | disposition home or self-care (01) ==
LOC: EDUNIT# 16:15 → ER 16:17
DX: G56.01 Carpal tunnel syndrome, right upper limb (principal); G56.21 Lesion of ulnar nerve, right upper limb; F17.210 Nicotine dependence, cigarettes, uncomplicated; Z88.2 Allergy status to sulfonamides; Z88.1 Allergy status to other antibiotic agents
CPT/HCPCS: 99282

== ENCOUNTER 2022-03-17 12:31 | Emergency (ER) | payer BC ==
[~2022-03-17] VITALS: Ht 187.9 cm; Wt 123.4 kg
[~2022-03-17 12:31] MED LIST changes: +CLIN-144 PO; -CLIN300C12 PO; -DOXY100C2 PO; +DOXY100C5 PO; +METH4TAB10 PO
[2022-03-17] MEDS ORDERED: DOXY100T2 PO (13:16)
[2022-03-17] MEDS ORDERED: CLIN-144 PO (13:16)
--- NOTE | 2022-03-17 13:18 | ED Integumentary General ---
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 Nursing Triage Note: PT AMB TO TRIAGE WITH COMPLAINT OF WOUND TO RIGHT PALM Source: patient Exam Limitations: no limitations Allergies and Home Medications Allergies Coded Allergies: sulfamethoxazole (Verified Allergy, Intermediate, HIVES, 02/16/12) trimethoprim (Verified Allergy, Intermediate, HIVES, 02/16/12) Patient Home Medication List Clotrimazole (Clotrimazole) 15 Gm Cream..g., 1 GM TP BID Prescribed by: BENNETT PEÑALOZA on 09/03/19 1725 Doxycycline Hyclate (Doxycycline Hyclate) 100 Mg Capsule, 100 MG PO BID Prescribed by: BENNETT PEÑALOZA on 09/03/19 1725 Methylprednisolone (Methylprednisolone Dose Pack) 4 Mg Tab.ds.pk, 4 MG PO UD Prescribed by: MOI KOTHARI on 09/01/20 1647 Silver Sulfadiazine (Ssd) 25 Gm Cream..g., (Reported) Entered as Reported by: BHARGAV BERMAN on 09/03/19 1543 Sodium Hypochlorite (Dakin's) 1,000 Ml Liquid, 1,000 ML TOP DAILY Prescribed by: BENNETT PEÑALOZA on 09/03/19 1716 Past Ypuvlal-Egcnzm-Nufsmv Hx Patient Social History Tobacco Use?: Yes Tobacco type used: Cigarettes Smoking Status: Current Everyday Smoker Use of E-Cig and/or Vaping dev: No Substance use?: No Alcohol Use?: No Pt feels they are or have been: No Immunizations Up To Date Tetanus Booster (TDap): Unknown Past Medical History Surgeries: Yes (DENTAL EXTRACTIONS) Gallbladder Respiratory: No Cardiac: No Neurological: No Reproductive Disorders: No Sexually Transmitted Disease: No HIV/AIDS: No Genitourinary: No Gastrointestinal: Yes Abdominal Hernia, Gastroesophageal Reflux Musculoskeletal: No Endocrine: No HEENT: No Cancer: No Psychosocial: No Integumentary: Yes (MRSA HX INVOLING FEET) Blood Disorders: No Family Medical History No Pertinent Family Hx Physical Exam Vital Signs Vital Signs - First Documented 03/17/22 12:43 Pulse 79 Resp 16 B/P (MAP) 173/91 (118) Pulse Ox 99 O2 Delivery Room Air Capillary Refill : Less Than 3 Seconds Progress/Results/Core Measures Results/Orders Vital Signs/I&O 03/17/22 12:43 Pulse 79 Resp 16 B/P (MAP) 173/91 (118) Pulse Ox 99 O2 Delivery Room Air Blood Pressure Mean: 118 Departure Impression Primary Impression: Abscess of right hand Disposition: 01 HOME, SELF-CARE Condition: Improved Departure-Patient Inst. Decision time for Depature: 13:14 Referrals: NATALEE HATCH DO (PCP/Family) Primary Care Physician Patient Instructions: Skin Abscess Add. Discharge Instructions: Soak your hand in warm soapy water 3 or 4 times a day over the next couple of days to encourage draining of the abscess. Use a couple squirts of the chlorhexidine soap provided. Soak for 15 to 30 minutes. You may leave wound open to air as long as it is not actively draining. When wound is draining, cover with gauze and wrap. Also cover and wrap when working in dirty environments. Complete the antibiotics as prescribed. Your wound culture should be processed by Tuesday, and you may call to follow-up on the results to ensure the antibiotics you are taking provide appropriate coverage for the type of infection you have. Return to the ER if you have worsening symptoms despite following these instructions or if you develop new symptoms such as fever or chills. All discharge instructions reviewed with patient and/or family. Voiced understanding. Scripts Clindamycin HCl (Clindamycin HCl) 300 Mg Capsule 300 MG PO QID, #28 CAP Prov: ZANE JHAVERI MD 03/17/22 Doxycycline Hyclate (Doxycycline Hyclate) 100 Mg Tablet 100 MG PO BID, #14 TAB 0 Refills Prov: ZANE JHAVERI MD 03/17/22 ZANE JHAVERI MD Mar 17, 2022 13:18
[2022-03-17] MEDS ORDERED: TETANUS,DIPTH,PERTUSS P/F (BOOSTRIX) 0.5 ML VIAL IM ONE (13:30)
[2022-03-17 13:31] VITALS: BP 129/80
== END 2022-03-17 13:31 | disposition home or self-care (01) ==
LOC: EDUNIT# 12:31 → ER 12:34
DX: L02.511 Cutaneous abscess of right hand (principal); F17.210 Nicotine dependence, cigarettes, uncomplicated
CPT/HCPCS: 87070; 87205; 90715

== ENCOUNTER 2022-08-24 13:33 | Emergency (ER) | payer BC ==
[~2022-08-24] VITALS: Ht 187.9 cm; Wt 122.0 kg
[~2022-08-24 13:33] MED LIST changes: +ALBU8.5H6 IH; +DOXY100T2 PO; -RT-ALBUINH IH
[2022-08-24] MEDS ORDERED: PRD20T PO (14:24)
[2022-08-24] MEDS ORDERED: CYCL10TA25 PO (14:24)
--- NOTE | 2022-08-24 14:24 | ED Back Pain ---
General Chief Complaint: Back Problems Stated Complaint: LOWER BACK PAIN Nursing Triage Note: PT STATES HE HAS HAD CHRONIC BACK PAIN FOR OVER 17 YRS, TAKES IBUPROFEN AT HOME, STATES HE THINKS HE PULLED SOMETHING IN HIS BACK ON TUESDAY AT WORK AND HAS HAD SEVERE LOWER BACK PAIN SINCE TUESDAY NIGHT Source of Information: Patient Exam Limitations: No Limitations History of Present Illness Date Seen by Provider: Aug 24, 2022 Time Seen by Provider: 14:21 Initial Comments This is a well-appearing 52-year-old male who presented to the ER with complaints of low back pain more so on the left side. States that he was at work at [employer] and thinks he pulled something in his back 4 days ago. Pain is worse whenever he moves his left arm or turn certain way. Has been applying topical lidocaine cream, resting and this has improved his symptoms somewhat. His pain returns whenever he is active. No numbness or tingling, pain is localized to left mid and lower back. No fever, chills, cough, shortness of breath, nausea, vomiting, abdominal pain. Allergies and Home Medications Allergies Coded Allergies: sulfamethoxazole (Verified Allergy, Intermediate, HIVES, 02/16/12) trimethoprim (Verified Allergy, Intermediate, HIVES, 02/16/12) Patient Home Medication List Home Medication List Reviewed: Yes Clindamycin HCl (Clindamycin HCl) 300 Mg Capsule, 300 MG PO QID Prescribed by: ZANE XIAO on 03/17/22 131 Clotrimazole (Clotrimazole) 15 Gm Cream..g., 1 GM TP BID Prescribed by: BENNETT PEÑALOZA on 09/03/19 1725 Cyclobenzaprine HCl (Cyclobenzaprine HCl) 10 Mg Tablet, 10 MG PO Q8H PRN for SPASMS Prescribed by: JANICE DE LA GARZA on 08/24/22 1424 Doxycycline Hyclate (Doxycycline Hyclate) 100 Mg Capsule, 100 MG PO BID Prescribed by: BENNETT PEÑALOZA on 09/03/19 1725 Doxycycline Hyclate (Doxycycline Hyclate) 100 Mg Tablet, 100 MG PO BID Prescribed by: ZANE XIAO on 03/17/22 1316 Methylprednisolone (Methylprednisolone Dose Pack) 4 Mg Tab.ds.pk, 4 MG PO UD Prescribed by: MOI KOTHARI on 09/01/20 1647 Prednisone (Prednisone) 20 Mg Tab, 40 MG PO DAILY Prescribed by: JANICE DE LA GARZA on 08/24/22 1424 Silver Sulfadiazine (Ssd) 25 Gm Cream..g., (Reported) Entered as Reported by: BHARGAV BERMAN on 09/03/19 1543 Sodium Hypochlorite (Dakin's) 1,000 Ml Liquid, 1,000 ML TOP DAILY Prescribed by: BENNETT PEÑALOZA on 09/03/19 1716 Review of Systems Constitutional: see HPI Past Ksrrlpw-Vcqpls-Hyiaan Hx Patient Social History Tobacco Use?: Yes Tobacco type used: Cigarettes Substance use?: No Alcohol Use?: Yes Alcohol Frequency: Rarely Immunizations Up To Date Tetanus Booster (TDap): Unknown Influenza Vaccine Up-to-Date: No; Not Current Past Medical History Surgeries: Yes (DENTAL EXTRACTIONS) Gallbladder Respiratory: No Cardiac: No Neurological: No Reproductive Disorders: No Sexually Transmitted Disease: No HIV/AIDS: No Genitourinary: No Gastrointestinal: Yes Abdominal Hernia, Gastroesophageal Reflux Musculoskeletal: No Endocrine: No HEENT: No Cancer: No Psychosocial: No Integumentary: Yes (MRSA HX INVOLING FEET) Blood Disorders: No Family Medical History No Pertinent Family Hx Physical Exam Vital Signs Vital Signs - First Documented 08/24/22 13:49 Temp 36.7 Pulse 87 Resp 16 B/P (MAP) 185/93 (123) Pulse Ox 98 O2 Delivery Room Air Capillary Refill : Height, Weight, BMI Height: 6'2.00" Weight: 263lbs. 4.0oz. [id number]; 34.00 BMI Method:Stated General Appearance: No Apparent Distress, WD/WN HEENT: PERRL/EOMI, Normal ENT Inspection Neck: Full Range of Motion, Non Tender Cardiovascular: Regular Rate, Rhythm, No Murmur, Normal Peripheral Pulses Respiratory: Chest Non Tender, Lungs Clear, Normal Breath Sounds, No Accessory Muscle Use, No Respiratory Distress Gastrointestinal: Normal Bowel Sounds, Non Tender, Soft Back: Muscle Spasm (left mid thoracic and lumbar); No Vertebral Tenderness Extremity: Normal Capillary Refill, Normal Inspection, Normal Range of Motion Neurologic/Psychiatric: Alert, Oriented x3, No Motor/Sensory Deficits, Normal Mood/Affect Skin: Normal Color, Warm/Dry Progress/Results/Core Measures Results/Orders Vital Signs/I&O 08/24/22 08/24/22 13:49 14:34 Temp 36.7 36.7 Pulse 87 87 Resp 16 16 B/P (MAP) 185/93 (123) 185/93 Pulse Ox 98 98 O2 Delivery Room Air Room Air Blood Pressure Mean: 123 Progress Progress Note : Progress Note Patient examined in no acute distress. The majority of his tenderness is over his left paraspinous muscles mid thoracic region and lumbar region. He does have occasional intermittent pain in his middle of his lumbar spine. Has history of pre-existing back issues, however does not feel that that is originating from the middle of his spine. Will go ahead and have him trial muscle relaxers and do short burst of steroids for back strain. Discharge plan of care reviewed and he is agreeable with plan. Departure Impression Primary Impression: Back strain Disposition: 01 HOME, SELF-CARE Condition: Stable Departure-Patient Inst. Decision time for Depature: 14:22 Referrals: NATALEE HATCH DO (PCP/Family) Primary Care Physician Patient Instructions: Muscle Strain ED Add. Discharge Instructions: Plan: 1. Use ice/heat 20 minutes at a time for pain. 2. May apply topical cream as directed per package. 3. Use Flexeril 10mg by mouth every 8 hours as needed for pain. 4. Take Prednisone daily with food to prevent GI upset. 5. Return for any new, concerning, or worsening symptoms. All discharge instructions reviewed with patient and/or family. Voiced understanding. Scripts Cyclobenzaprine HCl (Cyclobenzaprine HCl) 10 Mg Tablet 10 MG PO Q8H PRN for SPASMS, #15 TAB 0 Refills Prov: JANICE DE LA GARZA [employer]ILS SUPERVISOR 08/24/22 Prednisone (Prednisone) 20 Mg Tab 40 MG PO DAILY, #6 TAB 0 Refills Prov: JANICE DE LA GARZA MAILS SUPERVISOR 08/24/22 JANICE DE LA GARZA MAILS SUPERVISOR Aug 24, 2022 14:24
[2022-08-24 14:34] VITALS: BP 185/93
== END 2022-08-24 14:35 | disposition home or self-care (01) ==
LOC: EDUNIT# 13:33 → ER 13:35
DX: S39.012A Strain of muscle, fascia and tendon of lower back, initial encounter (principal); S29.012A Strain of muscle and tendon of back wall of thorax, initial encounter; F17.210 Nicotine dependence, cigarettes, uncomplicated; Z28.310 Unvaccinated for COVID-19; X58.XXXA Exposure to other specified factors, initial encounter; Y92.59 Other trade areas as the place of occurrence of the external cause; Y99.0 Civilian activity done for income or pay
CPT/HCPCS: 99281